=== PATIENT | female | born 1970 | race Caucasian/White ===

== ENCOUNTER 2023-03-08 12:45 | Inpatient (IN) | payer OTHER ==
[~2023-03-08] VITALS: Ht 152.4 cm; Wt 81.6 kg
[2023-03-12] MEDS ORDERED: ACETAMINOPHEN-1 EAC2 PO (11:01)
[2023-03-12] MEDS ORDERED: SIMETHICONE80 MG PO (11:01)
[2023-03-12] MEDS ORDERED: COLACE100 MG PO (11:01)
== END 2023-03-12 12:10 | disposition home or self-care (01) | DRG 743 ==
LOC: SURH 03-09 12:45 → O/R 03-09 15:20 → SURH 03-09 16:45 → OB/GYN 03-09 20:15
PROVIDERS: ADMIT Obstetrics & Gynecology; ATTEND Obstetrics & Gynecology
PROC: 0TJB8ZZ Inspection of Bladder, Via Natural or Artificial Opening Endoscopic (ICD-10-PCS; 2023-03-09)
PROC: 0UT90ZZ Resection of Uterus, Open Approach (ICD-10-PCS; principal; 2023-03-09 16:45)
DX: D25.1 Intramural leiomyoma of uterus (principal); D25.2 Subserosal leiomyoma of uterus; D25.0 Submucous leiomyoma of uterus; Z20.822 Contact with and (suspected) exposure to COVID-19